=== PATIENT | male | born 1990 | race Caucasian/White ===

== ENCOUNTER 2021-12-01 01:30 | Emergency (ER) | payer MEDICAID | END 2021-12-01 03:30 | disposition home or self-care (01) | LOC: JP.ED 01:30 | DX: S51.802A Unspecified open wound of left forearm, initial encounter (principal); F12.10 Cannabis abuse, uncomplicated; F15.10 Other stimulant abuse, uncomplicated; Z72.0 Tobacco use | CPT/HCPCS: 36415; 80053; 80305-QW; 81001; 83605; 84145; 85025; 86140; 99283 ==